=== PATIENT | female | born 1945 | race Caucasian/White ===

== ENCOUNTER 2018-06-07 09:06 | Inpatient (IN) | payer OTHER ==
[2018-06-07] MEDS ORDERED: IOPAMIDOL (ISOVUE-300) 100 ML BTL ONE (09:14)
--- NOTE | 2018-06-07 09:23 | EDPHY ---
H & P Time Seen by Provider: 06/07/18 09:11 HPI/ROS: CHIEF COMPLAINT: Fall HISTORY OF PRESENT ILLNESS: The patient is a 72-year-old female with a history of dementia presents emergency department from [facility] at [facility]. The patient was found down on the floor. Unclear exactly how long she was on the floor. The staff reports that she fell today and had no other previous falls. The patient complains of head and neck pain. She denies any chest pain or shortness of breath. No abdominal pain. The patient does not recall the fall. REVIEW OF SYSTEMS: Patient has difficulty giving a complete review of systems due to her trauma and dementia Past Medical/Surgical History: Includes dementia, rhabdomyolysis, osteoporosis, depression, anxiety, breast cancer Smoking Status: Never smoked Physical Exam: Vitals noted GENERAL: No acute distress, alert. HEAD: No evidence of trauma. Patient has an abrasion on on the top of her head and abrasion on the right side of her head that appear to be acute. The patient's right face has a healing abrasion. This is not appear to be acute. EYES: PERRLA, EOMI, normal to inspection. ENT: Patient is coarse upper airway breath sounds. (she denies shortness of breath) Airway appears intact, no dental or oral injury, no malocclusion, no hemotympanum, normal external examination. NECK: The trachea is midline. There is no crepitus. Patient has C-spine tenderness to palpation. No deformity RESPIRATORY: [Clear to auscultation bilaterally, no rales, rhonchi or wheezing. Chest wall: Abrasion to the right chest wall.. No crepitance or deformity. CVS: Regular rate and rhythm, no rubs, murmurs, or gallops. ABDOMEN: Soft, nontender, nondistended, no bruising or abrasions. Pelvis: Stable. No tenderness palpation. GENITAL/RECTAL: Normal external exam. BACK: Patient has abrasion on the right side of her chest, no spinal tenderness , no spinal step off, no notable bruising or abrasions. SKIN: Normal color, warm, dry. No pallor or diaphoresis. EXTREMITIES: Right upper extremity: Abrasion and discoloration on her right shoulder. No tenderness palpation. Neurovascular intact distally. Left upper extremity: Atraumatic. No visible signs of trauma. No tenderness palpation. Neurovascular intact distally. Right lower extremity: Atraumatic. No visible signs of trauma. No tenderness palpation. Neurovascular intact distally. Left lower extremity: Atraumatic. No visible signs of trauma. No tenderness palpation. Neurovascular intact distally. NEURO/PSYCH: Alert and oriented x 2, GCS 14, normal mood and affect, normal motor sensory exam. Constitutional: Initial Vital Signs Temperature (C) 36.6 C 06/07/18 09:46 Heart Rate 105 H 06/07/18 09:46 Respiratory Rate 31 H 06/07/18 09:46 Blood Pressure 127/76 H 06/07/18 09:46 O2 Sat (%) 95 06/07/18 09:46 O2 Delivery Mode Nasal Cannula O2 (L/minute) 2 Allergies/Adverse Reactions: No Known Allergies Allergy (Verified 06/07/18 09:49) Home Medications: Medication Instructions Recorded NK [No Known Home Meds] 06/07/18 Medical Decision Making - Diagnostics Imaging Results: Imaging Impressions Cervical Spine CT 06/07/18 09:12 Impression: 1. Stable mild age-related atrophy. 2. No hemorrhage, mass effect, or definite acute peripheral infarct. 3. Stable mild to moderate nonspecific hypodensities in the white matter of bilateral cerebral hemispheres. Differential diagnosis includes microvascular ischemic disease, post-infectious/post-inflammatory sequela, atypical demyelinating disease, or migraine-related sequela. Small white matter lacunar infarcts may also have this appearance. 4. No evidence of acute fracture associated with the cervical spine 5. Stable moderate to marked degenerative disk disease involving the cervical spine with associated spinal and neuroforaminal stenoses at C3-C4, C4-C5, and C5 -C6. If symptoms worsen, additional imaging may be necessary. Findings discussed with Citlali Camarena M.D. at 0 945 hour, 06/07/2018. Head CT 06/07/18 09:12 Impression: 1. Stable mild age-related atrophy. 2. No hemorrhage, mass effect, or definite acute peripheral infarct. 3. Stable mild to moderate nonspecific hypodensities in the white matter of bilateral cerebral hemispheres. Differential diagnosis includes microvascular ischemic disease, post-infectious/post-inflammatory sequela, atypical demyelinating disease, or migraine-related sequela. Small white matter lacunar infarcts may also have this appearance. 4. No evidence of acute fracture associated with the cervical spine 5. Stable moderate to marked degenerative disk disease involving the cervical spine with associated spinal and neuroforaminal stenoses at C3-C4, C4-C5, and C5 -C6. If symptoms worsen, additional imaging may be necessary. Findings discussed with Citlali Camarena M.D. at 0 945 hour, 06/07/2018. Chest CT 06/07/18 09:14 Impression: 1. No acute fracture, however, sensitivity is diminished by respiratory motion artifact. 2. No acute sternal or thoracic spine fracture. 3. No pneumothorax or pulmonary contusion. 4. No evidence of acute aortic injury. 5. Trace right effusion and right basilar atelectasis. 6. Suspect gastroesophageal reflux and esophagitis evidenced by gastric wall thickening and layering fluid in the esophagus. Findings discussed with Emergency Department physician, Citlali Camarena, on 2018 at 10:10 a.m. ED Course/Re-evaluation: In the emergency department I met EMS on arrival. I took report from the textile dyer. Patient came as a limited trauma activation +. Patient was noted to have significant abrasions on her head and right side of her face. These seemed various ages. She also had discoloration to her right shoulder and right chest. She has a history of rhabdomyolysis in the past. I was concerned with the patient's presentation of traum, her dementia and her previous history. Laboratory studies were ordered. Patient was taken to CT imaging. She will start with imaging of her head and neck. If creatinine is normal she will have imaging of her chest abdomen and pelvis. This was ordered due to her fall, dimension and unclear history. I-STAT was performed. Sodium was low at 112. creatinine was 0.7. 959: Head CT: Please refer the dictated report by Dr. Bee. No acute disease noted. EKG shows sinus tachycardia, normal axis, normal intervals. There are no ST or T-wave abnormalities. CT chest, abdomen and pelvis: Please refer the dictated report by Dr. Mendes. No acute disease noted. CT cervical spine: Please refer the dictated report by Dr. Bee. No acute disease. No notable airway impingement. I discussed the results with the patient. I answered all her questions. Her C- collar was removed. The patient appeared anxious. She was given Ativan 0.25 mg IV. I discussed case with the hospitalist service. They will admit the patient for hyponatremia and further evaluation. I consulted Dr. Loco in from Trauma Services as a tree patient was limited trauma +. CK is pending. Lab was notified. Differential Diagnosis: My differential includes but is not limited to electrolyte abnormality, sugar abnormality, closed-head injury, subarachnoid hemorrhage, subdural hematoma, epidural hematoma, spinal injury, tracheal injury, angioedema Critical Care Time: The patient required 35 min of critical care time this was exclusive of any unbundled procedure. This was due the patient's altered mental status, need for frequent rechecks, low sodium, consultation with the hospitalist service and trauma. - Data Points Laboratory Results: Laboratory Results 06/07/18 09:30 06/07/18 06/07/18 06/07/18 10:03 09:30 09:30 WBC RBC Hgb POC Hgb Hct POC Hct MCV MCH MCHC RDW Plt Count MPV Neut % (Auto) Lymph % (Auto) [place] % (Auto) Eos % (Auto) Baso % (Auto) Nucleat RBC Rel Count Absolute Neuts (auto) Absolute Lymphs (auto) Absolute Monos (auto) Absolute Eos (auto) Absolute Basos (auto) Absolute Nucleated RBC Immature Gran % Immature Gran # PT INR APTT POC Sodium Sodium 112 mEq/L L* mEq/L (135-145) POC Potassium Potassium 3.7 mEq/L mEq/L (3.5-5.2) POC Chloride Chloride 65 mEq/L L mEq/L (97-110) Carbon Dioxide 20 mEq/l L mEq/l (22-31) POC Total CO2 Anion Gap 27 mEq/L H mEq/L (6-14) POC BUN BUN 12 mg/dL mg/dL (7-23) Creatinine 0.8 mg/dL mg/dL (0.6-1.0) POC Creatinine Estimated GFR > 60 Glucose 88 mg/dL mg/dL (70-100) POC Glucose Calcium 9.0 mg/dL mg/dL (8.5-10.4) Creatine Kinase Pending POC Troponin I 0.00 ng/mL ng/mL (0.00-0.08) 06/07/18 06/07/18 06/07/18 09:30 09:30 09:20 WBC Pending RBC Pending Hgb Pending POC Hgb 16.3 gm/dL gm/dL (12.6-16.3) Hct Pending POC Hct 48 % H % (38-47) MCV Pending MCH Pending MCHC Pending RDW Pending Plt Count Pending MPV Pending Neut % (Auto) Pending Lymph % (Auto) Pending [place] % (Auto) Pending Eos % (Auto) Pending Baso % (Auto) Pending Nucleat RBC Rel Count Pending Absolute Neuts (auto) Pending Absolute Lymphs (auto) Pending Absolute Monos (auto) Pending Absolute Eos (auto) Pending Absolute Basos (auto) Pending Absolute Nucleated RBC Pending Immature Gran % Pending Immature Gran # Pending PT 13.2 SEC SEC (12.0-15.0) INR 1.04 (0.83-1.16) APTT 29.8 SEC SEC (23.0-38.0) POC Sodium 112 mEq/L L* mEq/L (135-145) Sodium POC Potassium 3.3 mEq/L mEq/L (3.3-5.0) Potassium POC Chloride 69 mEq/L L mEq/L (97-110) Chloride Carbon Dioxide POC Total CO2 22 mEq/L mEq/L (22-31) Anion Gap POC BUN 11 mg/dL mg/dL (7-23) BUN Creatinine POC Creatinine 0.7 mg/dL mg/dL (0.6-1.0) Estimated GFR Glucose POC Glucose 104 mg/dL H mg/dL (70-100) Calcium Creatine Kinase POC Troponin I Medications Given: Discontinued Medications Lorazepam (Ativan Injection) 0.25 mg IVP EDNOW ONE Stop: 06/07/18 10:13 Last Admin: 06/07/18 10:16 Dose: 0.25 mg Lorazepam (Ativan Injection) 0.25 mg IVP ONCE ONE Stop: 06/07/18 10:39 Last Admin: 06/07/18 10:41 Dose: 0.25 mg Point of Care Test Results: Chemistry 06/07/18 06/07/18 10:03 09:20 POC Sodium 112 mEq/L L* mEq/L (135-145) POC Potassium 3.3 mEq/L mEq/L (3.3-5.0) POC Chloride 69 mEq/L L mEq/L (97-110) POC Total CO2 22 mEq/L mEq/L (22-31) POC BUN 11 mg/dL mg/dL (7-23) POC Creatinine 0.7 mg/dL mg/dL (0.6-1.0) POC Glucose 104 mg/dL H mg/dL (70-100) POC Troponin I 0.00 ng/mL ng/mL (0.00-0.08) ISTAT H&H 06/07/18 09:20 POC Hgb 16.3 gm/dL gm/dL (12.6-16.3) POC Hct 48 % H % (38-47) Departure - Departure Disposition: [facility] Inpatient Acute Clinical Impression: Hyponatremia Fall Qualifiers: Encounter type: initial encounter Qualified Code(s): W19.XXXA - Unspecified fall, initial encounter Facial abrasion Qualifiers: Encounter type: initial encounter Qualified Code(s): S00.81XA - Abrasion of other part of head, initial encounter Condition: Fair
[2018-06-07] MEDS ORDERED: LORazepam 2 MG/ML INJ IVP ONE ×2 (10:12→10:38)
[2018-06-07 10:20] LABS: INR 1.04 (0.83-1.16); PROTIME(PATIENT) 13.2 SEC (12.0-15.0)
[2018-06-07] MEDS ORDERED: LORazepam 2 MG/ML INJ ONE (10:37)
[2018-06-07] MEDS ORDERED: ACETAMINOPHEN 325 MG TAB PO PRN (10:49)
[2018-06-07] MEDS ORDERED: ONDANSETRON DISINTEGRATING 4 MG TAB PO PRN (10:49)
[2018-06-07] MEDS ORDERED: ONDANSETRON 4 MG/2 ML VIAL IVP PRN (10:49)
[2018-06-07 11:57] LABS: PLATELET COUNT 222 10^3/uL (150-400)
--- NOTE | 2018-06-07 12:27 | PDCONSULT ---
Display Carver Note: Renal Consult Note CC: Found down HPI: The patient is a 72 y/o F with no PMH who presents after being found down at her assisted living facility. She reports being in her usual state of health until having a fall this am. She cannot recall how it happened but woke up on the floor. Per her son she went shopping yesterday and does not usually have any issues. She is able to recall all events up until the fall. She reports drinking 8 bottles of water daily. She admits to having a cough that started a few weeks ago, but no N/V/D, fevers, or other issues. She cannot recall having problems with her sodium in the past nor has she had heart issues. She is not taking any medications. Tried calling the son, Branden, and left VM. PMH: None PSH: None Social Hx: Non-smoker, no ETOH use, independent living ROS: Negative except as per HPI. Objective: Temp Pulse Resp BP Pulse Ox 36.5 C 92 30 H 85/71 L 97 06/07/18 11:49 06/07/18 11:49 06/07/18 11:49 06/07/18 11:49 06/07/18 11:49 O2 (L/minute) 2 Physical Exam: Gen: Mild distress, raspy voice, trauma to eye and forehead HEENT: eechymosis, MMM Neck: Supple CV: RRR, no murmurs RESP: Coarse bs, no wheezing ABD: Soft, NT, ND EXT: Non-pitting edema, pulses intact Neuro: Non-focal, A+Ox3 Labs: WBC 15.03 10^3/uL (3.80-9.50) H 06/07/18 11:06 RBC 4.26 10^6/uL (4.18-5.33) 06/07/18 11:06 Hgb 13.7 g/dL (12.6-16.3) 06/07/18 11:06 POC Hgb 16.3 gm/dL (12.6-16.3) 06/07/18 09:20 Hct 36.8 % (38.0-47.0) L 06/07/18 11:06 POC Hct 48 % (38-47) H 06/07/18 09:20 MCV 86.4 fL (81.5-99.8) 06/07/18 11:06 MCH 32.2 pg (27.9-34.1) 06/07/18 11:06 MCHC 37.2 g/dL (32.4-36.7) H 06/07/18 11:06 RDW 11.9 % (11.5-15.2) 06/07/18 11:06 Plt Count 222 10^3/uL (150-400) 06/07/18 11:06 MPV 9.9 fL (8.7-11.7) 06/07/18 11:06 Neut % (Auto) Not Reported 06/07/18 11:06 Lymph % (Auto) Not Reported 06/07/18 11:06 [place] % (Auto) Not Reported 06/07/18 11:06 Eos % (Auto) Not Reported 06/07/18 11:06 Baso % (Auto) Not Reported 06/07/18 11:06 Nucleat RBC Rel Count Not Reported 06/07/18 11:06 Absolute Neuts (auto) Not Reported 06/07/18 11:06 Absolute Lymphs (auto) Not Reported 06/07/18 11:06 Absolute Monos (auto) Not Reported 06/07/18 11:06 Absolute Eos (auto) Not Reported 06/07/18 11:06 Absolute Basos (auto) Not Reported 06/07/18 11:06 Absolute Nucleated RBC Not Reported 06/07/18 11:06 Immature Gran % Not Reported 06/07/18 11:06 Seg Neutrophils % 81.6 % 06/07/18 11:06 Band Neutrophils % 13.3 % 06/07/18 11:06 Lymphocytes % 4.1 % 06/07/18 11:06 Monocytes % 1.0 % 06/07/18 11:06 Eosinophils % 0.0 % 06/07/18 11:06 Basophils % 0.0 % 06/07/18 11:06 Metamyelocytes % 0.0 % 06/07/18 11:06 Myelocytes % 0.0 % 06/07/18 11:06 Promyelocytes % 0.0 % 06/07/18 11:06 Blast Cells % 0.0 % 06/07/18 11:06 Immature Gran # Not Reported 06/07/18 11:06 Absolute Seg Neuts 12.26 10^3/uL (1.70-6.50) H 06/07/18 11:06 Absolute Band Neuts 2.00 10^3/uL (0.00-0.70) H 06/07/18 11:06 Absolute Lymphocytes 0.62 10^3/uL (1.00-3.00) L 06/07/18 11:06 Absolute Monocytes 0.15 10^3/uL (0.30-0.80) L 06/07/18 11:06 Absolute Eosinophils 0.00 10^3/uL (0.03-0.40) L 06/07/18 11:06 Absolute Basophils 0.00 10^3/uL (0.02-0.10) L 06/07/18 11:06 Absolute Metamyelocyte 0.00 10^3/mL (0.00-0.00) 06/07/18 11:06 Absolute Myelocytes 0.00 10^3/mL (0.00-0.00) 06/07/18 11:06 Absolute Promyelocytes 0.00 10^3/uL (0.00-0.00) 06/07/18 11:06 Absolute Plasma Cells 0.00 10^3/uL (0.00-0.00) 06/07/18 11:06 Nucleated RBCs 0 /100 WBC (0-0) 06/07/18 11:06 Absolute Blast Cells 0.00 10^3/uL (0.00-0.00) 06/07/18 11:06 Plasma Cells % 0.0 % 06/07/18 11:06 Platelet Estimate ADEQUATE (ADEQ) 06/07/18 11:06 Echinocytes 3+ H 06/07/18 11:06 PT 13.2 SEC (12.0-15.0) 06/07/18 09:30 INR 1.04 (0.83-1.16) 06/07/18 09:30 APTT 29.8 SEC (23.0-38.0) 06/07/18 09:30 POC Sodium 112 mEq/L (135-145) L* 06/07/18 09:20 Sodium 110 mEq/L (135-145) L* 06/07/18 11:06 POC Potassium 3.3 mEq/L (3.3-5.0) 06/07/18 09:20 Potassium 3.7 mEq/L (3.5-5.2) 06/07/18 11:06 POC Chloride 69 mEq/L (97-110) L 06/07/18 09:20 Chloride 67 mEq/L (97-110) L 06/07/18 11:06 Carbon Dioxide 22 mEq/l (22-31) 06/07/18 11:06 POC Total CO2 22 mEq/L (22-31) 06/07/18 09:20 Anion Gap 21 mEq/L (6-14) H 06/07/18 11:06 POC BUN 11 mg/dL (7-23) 06/07/18 09:20 BUN 12 mg/dL (7-23) 06/07/18 11:06 Creatinine 0.7 mg/dL (0.6-1.0) 06/07/18 11:06 POC Creatinine 0.7 mg/dL (0.6-1.0) 06/07/18 09:20 Estimated GFR > 60 06/07/18 11:06 Glucose 91 mg/dL (70-100) 06/07/18 11:06 POC Glucose 104 mg/dL (70-100) H 06/07/18 09:20 Calcium 8.5 mg/dL (8.5-10.4) 06/07/18 11:06 POC Troponin I 0.00 ng/mL (0.00-0.08) 06/07/18 10:03 Urine Color LT. YELLOW 06/07/18 10:51 Urine Appearance CLEAR 06/07/18 10:51 Urine pH 6.0 (5.0-7.5) 06/07/18 10:51 Ur Specific [place] >= 1.030 (1.002-1.030) 06/07/18 10:51 Urine Protein NEGATIVE (NEGATIVE) 06/07/18 10:51 Urine Ketones 3+ (NEGATIVE) H 06/07/18 10:51 Urine Blood NEGATIVE (NEGATIVE) 06/07/18 10:51 Urine Nitrate NEGATIVE (NEGATIVE) 06/07/18 10:51 Urine Bilirubin NEGATIVE (NEGATIVE) 06/07/18 10:51 Urine Urobilinogen 0.2 EU (0.2-1.0) 06/07/18 10:51 Ur Leukocyte Esterase NEGATIVE (NEGATIVE) 06/07/18 10:51 Urine RBC NONE SEEN /hpf (0-3) 06/07/18 10:51 Urine WBC 0-1 /hpf (0-3) 06/07/18 10:51 Ur Epithelial Cells TRACE /lpf (NONE-1+) 06/07/18 10:51 Urine Bacteria 1+ /hpf (NONE SEEN) H 06/07/18 10:51 Hyaline Casts 0-1 /lpf (0-1) 06/07/18 10:51 Granular Casts 1-3 /lpf (0-1) H 06/07/18 10:51 Urine Mucus 1+ /lpf (NONE-1+) 06/07/18 10:51 Urine Glucose NEGATIVE (NEGATIVE) 06/07/18 10:51 Imaging: Head CT results reviewed. A/P: The patient is a 72 y/o F with no PMH who presents after a fall with severe hyponatremia. Unknown etiology and may be hypovolemic given hypotension and leukocytosis. However may also be SIADH of unknown etiology given clinical exam and history. -check Na q3h -sent urine studies STAT -hold fluids and keep NPO for now -cultures, viral panel -echo, TSH -monitor accurate UO -no indication for 3% saline at this time -goal Na for today 116-118mg/dL Consult appreciated, will continue to follow, please contact if ?'s. #[phone] Buddy Gerard, DO [facility]
--- NOTE | 2018-06-07 12:59 | GHP ---
[f rep st] HISTORY AND PHYSICAL DATE OF ADMISSION: 06/07/2018 CHIEF COMPLAINT: Fall, hyponatremia. HPI: A 72-year-old female with history of depression/anxiety, breast cancer, brought in by EMS after found down at [facility]. She lives independently and was feeling fine last night, ate dinner, and then awoke this morning, got dressed, and went down to visit. Then she awoke on the floor not recalling any events. Denied any prodromal chest pain, shortness of breath, dizziness, or lightheadedness. No recent fevers, chills, or sweats. Has had a dry cough for 2 weeks. No other respiratory symptoms. No chest pain. I spoke with her son, Branden, who states that she has been doing well. He buys her groceries and he reports she eats daily meals. She reports drinking 8 10oz bottles water daily. He took her shopping this week and doing well. Only taking a multivitamin and stool softener. Klonopin stopped 3 months ago. He buys her a 24-pack of bottled water a week;. In the ER, sodium was 112, repeat was 110. She is hypotensive with systolic 85. REVIEW OF SYSTEMS: I completed a 10-point review of systems, negative except as noted in HPI. PAST MEDICAL HISTORY: Rhabdomyolysis, osteoporosis, depression/anxiety, breast cancer, status post chemotherapy, XRT, history of prior seizure, hyponatremia. "cognitive issues" after chemo PAST SURGICAL HISTORY: Left breast lumpectomy. FAMILY HISTORY: No strokes or cancers. HOME MEDICATIONS: Colace, multivitamin. ALLERGIES: None. PHYSICAL EXAMINATION: VITAL SIGNS: Temperature 36.5, blood pressures was 127/ 76, now 85/71, heart rate 92, respirations 24, 97% on 2 L. GENERAL: She is lying in bed, no acute distress. HEENT: Dried blood at the nares and lips. Skin maceration, right yazidism and cheek. CV: Regular rate and rhythm. LUNGS: Clear. ABDOMEN: Soft. No tenderness. MUSCULOSKELETAL: 5/5 upper and lower extremity strength. NEURO: 2 through 12 intact. PSYCH: Alert and oriented x3. She is answering questions appropriately. LABS: Initial sodium 112, repeat is 110, potassium 3.7, chloride 67, carbon dioxide 22, BUN 21, creatinine 0.7, glucose 91. Coags within normal. WBC 15, hemoglobin 13, hematocrit 36, platelets 222. Urine: +3 ketones, +1 bacteria. EKG, personally reviewed: Sinus tachycardia. Thoracic spine CT: No acute fracture. Lumbar: No acute lumbar fracture. Cervical spine CT: Stable, moderate degenerative disk disease of cervical spine , C3 through C6. No hemorrhage or mass effect. Abdominal CT: No soft tissue injury, possible reflux, age indeterminate buckle fracture of the left superior pubic ramus. ASSESSMENT/PLAN: 1. Severe hyponatremia: 112 on admission, repeat 110. Denies nausea, vomiting , diarrhea. Not on diuretic. Urine studies are pending. I have consulted Renal who will evaluate. 2. Fall: Unclear if had a seizure due to low sodium. Nonischemic EKG, negative troponin. Imaging shows subacute left suprapubic ramus fracture. C- collar was cleared. Dr. Loco will evaluate. 3. History of breast cancer, status post chemotherapy, XRT. 4. Hypotension: negative trop. Not significantly dry on exam, but low Cl. Lactate, orthostatics. Denies GI symptoms 5. Leukocytosis: dry cough; resp PCR pending. No PNA on CT. 6. Metabolic encephalopathy: more somnolent this afternoon 7. Diet: N.p.o. for now. 8. Deep venous thrombosis prophylaxis, Lovenox. DISPOSITION: Inpatient admission for severe hyponatremia. Critical care time spent 75 min evaluating pt, reviewing labs and d/w Dr. Belle and Dr. Gerard /[id number]/MODL MTDD
[2018-06-07 13:32] LABS: CREATINE KINASE 2097 IU/L (0-156)
--- NOTE | 2018-06-07 14:15 | PDMN ---
Medical Necessity Medical necessity: Pt meets inpt criteria per MD order and MG-SIC, Systemic or Infectious Condition GRG, severe hyponatremia w/sodium of 110, unknown etiology. Pt was found down at her [facility] after fall. Pt also presents w/ hypotension and leukocytosis and imaging shows subacute L suprapubic ramus fx. Renal consult, sodium checks q3h, urine studies pending, bl cultures pending, NPO, ICU care. Anticipate>2MN for ongoing eval/management of severe hyponatremia.
[2018-06-07] MEDS: NS 1,000 ML IV SCH ×2 (14:40→15:53)
[2018-06-07] MEDS ORDERED: ALBUMIN 25% 100 ML SOLN IV ONE (14:55)
--- NOTE | 2018-06-07 15:03 | CPEKG ---
Test Reason : OPEN Blood Pressure : / mmHG Vent. Rate : 103 BPM Atrial Rate : 103 BPM P-R Int : 127 ms QRS Dur : 081 ms QT Int : 361 ms P-R-T Axes : 072 037 037 degrees QTc Int : 473 ms Sinus tachycardia Confirmed by Rainer Camarena ([id number]) on 06/07/2018 3:03:06 PM Referred By: RAINER CAMARENA Confirmed By:Rainer Camarena
--- NOTE | 2018-06-07 15:10 | ECHO ---
[email or web address] [address] [address] Main: [phone] Echocardiography Examination Transthoracic Name: OTILIO BURGOS MR#: [id number] Study Date: 06/07/2018 Study Time: 01:39 PM Date of : 1945 Age: 72 year(s) Height: 160 cm (63 in.) Weight: 61.69 kg (136 lb.) BSA: 1.64 m2 Gender: Female Examination: Echo Contrast: Image Quality: Adequate Rhythm: Heart Rate: BP: 96 mmHg/57 mmHg Indication: eval for VHD, WMA Procedure Staff Referring Physician: Correctional Maintenance Technician: Sharlene Lucas [facility] Reading Physician: Shekhar Bennett MD Requesting Provider: Indication: eval for VHD, WMA Measurements Chambers AV/MV Label Value Normal Value Label Value Normal Value LVOTd 1.7 cm (1.8cm - 2cm) AV PGmean 4 mmHg LVDd, 2D 3.5 cm (3.9cm - 5.3cm) JOSÉ MIGUEL (VTI) 1.8 cm2 LVDs, 2D 2.1 cm (2.1cm - 4cm) MV E Vmax 0.47 m/s IVSd, 2D 0.9 cm (0.6cm - 1.1cm) MV A Vmax 0.7 m/s LVPWd, 2D 0.9 cm MV E/A 0.67 LVEF, 2D 71 % (54% - 74%) MV E/E' lateral 5.8 LVOT PGmean 2 mmHg MV E/E' septal 10.3 (0.45 - 1.25) LVOT Vmean 0.74 m/s MV DT 246 ms EF lower range (%) 55 % MV E' septal 0.05 m/s EF upper range (%) 60 % MV PHT 0.09 s RVDd, 2D 2.3 cm (1.9cm - 3.8cm) MVA PHT 2.5 cm2 LADs, 2D 2.4 cm (2.7cm - 3.8cm) MV E' lateral 0.08 m/s Additional Vessels MV E/E' mean 7.23 Label Value Normal Value MV PHT 88 ms AoAsc 2.6 cm MV E' mean 0.06 m/s AoRoot, 2D 2.9 cm (1.4cm - 2.6cm) IVC 1.2 cm (1.2cm - 2.3cm) Conclusions Patient: OTILIO BURGOS Study Date: 06/07/2018 Page 1 of 2 01:39 PM (1) Left ventricular systolic ejection fraction was normal (55-60%) - normal wall motion (2) Normal RV size and function (3) Normal atrial dimensions (4) Trivial MR with mild MAC (5) Poor visualization of the aortic valve morphology (patient was unable to position for the surface echo) with moderate AI. (6) Grossly normal tricupsid and pulmonic valves (7) Normal aorta dimensions (8) Consider HEATHER to better assess the pathology to the aortic valve, as well as cusp morphology Findings Limited imaging, patient unable to lay on left side. Left Ventricle: Left ventricle is normal in size. EF range is estimated at 55 % - 60 %. Left ventricle wall thickness is normal. There are no regional wall motion abnormalities. Cannot determine LAP and Diastolic Dysfunction Grade. Right Ventricle: Normal size right ventricle. Right ventricular systolic function is normal. Mitral Valve: Mitral valve appears structurally normal. Trivial mitral regurgitation. There is mild mitral annular calcification. Aortic Valve: Moderate aortic regurgitation is present. Aortic valve and leaflets not well visualized, suggest HEATHER to eval aortic insufficiency. Aorta: The aortic root size in 2D measures 2.9 cm. The ascending aorta measures 2.6 cm. Aorta Measurements AoRoot, 2D is 2.9 cm. IVC: The inferior vena cava is normal in size. Exam Details Procedure Ordered: Echo Procedure Status: Routine study Image Quality: Adequate Facility Location: Cardiac Echo 1 (No Signature Object) Patient: OTILIO BURGOS Study Date: 06/07/2018 Page 2 of 2 01:39 PM [id number]
[2018-06-07] MEDS ORDERED: NS 250 ML IV ONE (15:21)
--- NOTE | 2018-06-07 15:31 | HOSPPROG ---
Hospitalist Progress Note Assessment/Plan: Update this afternoon: SBP 70s. RN spoke with son again who now reports vomit was all over apartment, so dehydration likely contributing #Hypotension -Echo shows NL EF 55%, mod AR. UA with bacteria, no WBCs/nitrites. Neg resp PCR -dosed total 500cc NS and albumin with improved BP. Making urine -spoke with Dr. Gerard; NS 100cc/hr with q1hr istat Na--> Dr Chase on-call and aware of plan -PICC line ordered -AM cortisol #Hyponatremia -monitor q1h istat Na -may need DDAVPP if corrects too quickly #Anemia: repeat H/H this evening #Goals: does not have Advanced Directive, spiritual care consulted to assist -daughter at bedside and questions answered. BrotherBranden, is MDPOA Objective: Vital Signs Temp Pulse Resp BP Pulse Ox 36.5 C 86 15 94/47 L 96 06/07/18 11:49 06/07/18 15:00 06/07/18 15:00 06/07/18 15:00 06/07/18 15:00 Laboratory Results 06/07/18 11:06 06/07/18 13:25 PT 13.2 SEC (12.0-15.0) 06/07/18 09:30 INR 1.04 (0.83-1.16) 06/07/18 09:30 ICD10 Worksheet Patient Problems: Problems Problem Status Onset Facial abrasion Acute Fall Acute Hyponatremia Acute Encephalopathy Acute Seizure Acute
[2018-06-07] MEDS ORDERED: ALBUMIN 25% 100 ML IV ONE (15:54)
--- NOTE | 2018-06-07 16:05 | ASMTCMCOM ---
CM Note CM Note Notes: Pt presented to the ED via EMS as a LTA + after being found down in her Independent Living apartment at [facility]. Pt was found with a large abrasion to the right side of her face. Pt also had other abrasions that appeared healed, possibly from other previous falls. Pt is admitted for a fall(s?) possibly related to a possible seizure due to severe hyponatremia. Pt has a history of having a seizure due to severe hyponatremia. Pt is also presenting w/hypotension and leukocytosis. This CM called and spoke w/pt's son and POA, Branden ([phone]) who lives and works locally ([facility]/[place]). Updated Branden on pt's status and Branden states he will call his sister Rachelle ([phone]) who lives in [place]. Branden states he plans on coming to the hospital this afternoon. 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 Branden states pt has not taken any Rxn medications for at least the past 3 months. See H&P and progress note for additional info provided by Branden. Branden states he is leaving on for [place] for vacation; so after then Rachelle will be available for emergencies and/or medical decision making. *Additional POA paperwork, alternate POA/proxy paperwork may need to be completed w/Rachelle and Branden prior to him leaving on . Pt receives non-skilled private caregiving assistance twice a day from [facility] ([phone]). Pt's PCP is listed as Dr Mancuso on facesheet but is listed as Dr. Kimberli Mcintyre in the [facility] records. This CM called and spoke w/Teresita; relayed that the pt was being admitted. Pt to receive PICC line. ECHO completed. PT/OT/CLERK OF COURT and wound care consults/evals ordered. Exact DC needs TBD. CM to follow. Date Signed: 06/07/2018 04:05 PM Electronically Signed By:Sheridan Lozoya RN
--- NOTE | 2018-06-07 16:07 | ASMTLACE ---
LIN Acuity / Level of Answers: Yes Care: Did the patient have an inpatient admission? Comorbidities - select Answers: Any tumor (including all that apply lymphoma or leukemia) History of falls Other Notes: anxiety, depression, OA , b reast cancer (underwent chemo 10 yrs ago that resulted in "chemo brain") vs dementia diagnosis; history of seizure and hyponatremi a # of Emergency department Answers: 1-2 visits in the last 6 months Social determinants Answers: Mental health diagnosis (anxiety, depression, pers onality disorders, etc.) Score: 13 Date Signed: 06/07/2018 04:06 PM Electronically Signed By:Sheridan Lozoya RN
[2018-06-07] MEDS ORDERED: NS 1,000 ML IV SCH ×2 (17:00→18:15)
[2018-06-07] MEDS ORDERED: D50W 25 GM/50 ML SYR IVP PRN (17:31)
[2018-06-07] MEDS ORDERED: POTASSIUM CL 20 MEQ TAB PO ONE (19:30)
--- NOTE | 2018-06-07 19:45 | GCON ---
[f rep st] CONSULTATION DATE OF CONSULTATION: 06/07/2018 CHIEF COMPLAINT: Fall. HISTORY OF PRESENT ILLNESS: The patient is a 72-year-old woman who was found down at [facility]. She lives independently and her son assists her with buying groceries. She says that she felt w ell last night. She was going to have breakfast this morning. She was found down. She does not hav e any recollection of the events. PAST MEDICAL HISTORY: Includes breast cancer, history of prior seizure, hyponatremia, osteoporosis, depression, anxiety, and currently being treated for severe hyponatremia, rhabdomyolysis. PAST SURGICAL HISTORY: Left breast lumpectomy. FAMILY HISTORY: Noncontributory to fall. ALLERGIES: No known drug allergies. PHYSICAL EXAMINATION: VITAL SIGNS: Afebrile, 86, 36.5, 92, 85/71, 97% on room air. GENERAL: Pleas ant, lying on gurney. A bit tachypneic. She appears well nourished. HEENT: Ecchymosis over right side of face. Her pupils are equal, round, reactive to light and accommodation. No hemotympanum. N o otorrhea. No rhinorrhea. Teeth fit together normally, no chips. Posterior pharynx clear. Mucous membranes dry. LUNGS: Clear to auscultation bilaterally. She is tachypneic but with direction berenice l slow her breathing rate down. CARDIAC: Regular rate. ABDOMEN: Bowel sounds present. Soft, nont joaquin. MUSCULOSKELETAL: 5/5 strength upper and lower extremities. SKIN: No ecchymosis noted on to rso or extremities. NECK: No cervical spine tenderness. Full range of motion. PSYCH: Answers que stions appropriately. NEURO: Grossly intact. LABORATORY DATA: I personally reviewed the results of her CT scan of her head, C-spine, chest, abdom en, pelvis with her spinal reconstruction. She has a subacute buckle fracture of the left superior p ubic ramus. Otherwise, no acute traumatic injuries. Reviewed her laboratory work. Her hemoglobin a nd hematocrit are 13.7 and 36.8. INR 1.04. Chemistry panel is notable for a sodium of 110, creatini ne 0.7. Sodium 112. Her CK is 2097 and CK-MB 25.5. Troponin is negative. Her drug screen is negat gus and her alcohol is less than 10. IMPRESSION AND PLAN: The patient is a 72-year-old woman who was found down. She does have rhabdomyo lysis. She does not have acute traumatic injury. She is severely hyponatremic. She will be admitte d to the hospitalist. I do not see any other injuries. Please contact the trauma service with any q uestions or concerns. We are happy to see the patient in followup should it be desired. /[id number]/MODL
[2018-06-07] MEDS ORDERED: POTASSIUM Cl (KCl) 100 ML IV ONE (20:30)
[2018-06-07] MEDS: 1/2 NS 1,000 ML IV SCH (23:18)
[2018-06-08] MEDS: 1/2 NS 1,000 ML IV SCH ×2 (07:47→17:19)
[2018-06-08 08:04] LABS: CREATINE KINASE 808 IU/L (0-156)
--- NOTE | 2018-06-08 08:13 | SOAPPROG ---
SOAP Progress Note Assessment/Plan: Assessment: hyponatremia, admit Na 112, most recent about 20 hours later 118, appropriate rise fall at home, unwitnessed volume depletion on admit, better hypotension, SBP remains in 80's mild rhabdomyolysis probable vol depletion initially, Henry 12 Plan: continue current therapies check cxr today (rhonchi) consider echocardiogram with hypotension 06/08/18 08:09 Subjective: tired, slept OK no sig pain some cough and mild SOB not eating much at this point can't remember anything about the incident Objective: Vital Signs Temp Pulse Resp BP Pulse Ox 37.2 C 69 17 83/43 L 100 06/08/18 04:00 06/08/18 07:00 06/08/18 07:00 06/08/18 06:00 06/08/18 07:00 Microbiology 06/07/18 13:30 Respiratory Panel (PCR) - Final Nasal, Sinus - Swab No Organism Detected By Pcr Laboratory Results 06/08/18 05:30 06/08/18 05:30 06/07/18 06/08/18 06/09/18 05:59 05:59 05:59 Intake Total 1848 Output Total 1550 Balance 298 PT 13.2 SEC (12.0-15.0) 06/07/18 09:30 INR 1.04 (0.83-1.16) 06/07/18 09:30 Physical Exam - Physical Exam General Appearance: alert, thin Neck: normal inspection Respiratory: rales, rhonchi, wheezing Cardiac/Chest: regular rate, rhythm, systolic murmur, No edema, No friction rub Abdomen: normal bowel sounds, non-tender, soft Skin: warm/dry Extremities: No swelling Neuro/Psych: alert, normal mood/affect, oriented x 3 ICD10 Worksheet Patient Problems: Problems Problem Status Onset Facial abrasion Acute Fall Acute Hyponatremia Acute Encephalopathy Acute Seizure Acute
[2018-06-08] MEDS: ENOXAPARIN 40 MG/0.4 ML SYR SC SCH (09:02)
--- NOTE | 2018-06-08 10:20 | HOSPPROG ---
Hospitalist Progress Note Assessment/Plan: #Hypotension: volume loss with vomiting -no infectious source identified -Echo shows NL EF 55%, mod AR. NL cortisol -NICOM indicates fluid-responsive; albumin dosed #Hyponatremia: due vomiting/excess water intake. Na with appropriate rise, now 117. 1/2 NS, q3hr Na #Anemia: H/H stable. Iron studies #h/o breast cancer: s/p XRT/chemo #Depression/anxiety: previously on Klonopin #Deconditioning: PT/OT #Goals: does not have Advanced Directive, spiritual care consulted to assist Inpatient admission for hyponatremia. hypotension Subjective: c/o sore throat. No dizziness/lightheadedness Objective: Vital Signs Temp Pulse Resp BP Pulse Ox 37.0 C 73 15 80/36 L 99 06/08/18 08:00 06/08/18 09:00 06/08/18 09:00 06/08/18 09:00 06/08/18 09:00 Microbiology 06/07/18 13:30 Respiratory Panel (PCR) - Final Nasal, Sinus - Swab No Organism Detected By Pcr Laboratory Results 06/08/18 05:30 06/08/18 08:41 06/07/18 06/08/18 06/09/18 05:59 05:59 05:59 Intake Total 1848 Output Total 1550 Balance 298 PT 13.2 SEC (12.0-15.0) 06/07/18 09:30 INR 1.04 (0.83-1.16) 06/07/18 09:30 - Time Spent With Patient Time Spent with Patient: greater than 35 minutes Time Spent with Patient: Greater than 35 minutes spent on this patients care, greater than 50% of time spent counseling, educating, and coordinating care regarding the above mentioned plan. - Physical Exam Constitutional: no apparent distress Eyes: PERRL Cardiovascular: regular rate and rhythym Respiratory: rhonchi Gastrointestinal: normoactive bowel sounds, soft, non-tender abdomen Genitourinary: andres in urethra Skin: warm, other (pressure injury right synagogue, cheek) Neurologic: AAOx3, CN II-XII Intact Psychiatric: interacting appropriately Lymph, Heme, Immunologic: other (left cervical ) ICD10 Worksheet Patient Problems: Problems Problem Status Onset Facial abrasion Acute Fall Acute Hyponatremia Acute Encephalopathy Acute Seizure Acute
--- NOTE | 2018-06-08 11:37 | PDINTPN ---
Special Officer Progress Note Assessment/Plan: Assessment: Hyponatremia: Likely due to vomiting with high free water oral intake. Improved with hydration (1/2 NS) and close monitoring of sodium. The current rate of rise in serum sodium is appropriate. Hypertension: Likely due to volume depletion, with low urine sodium at admission and responsiveness to small fluid boluses yesterday. Likely caused by vomiting. Anemia: Mild. Has not fallen since initial hydration last night. No signs of active bleeding. Back and neck pain: No evidence of fracture or other significant injury on CT. Likely musculoskeletal injury. Plan: Continue current fluids strategy with close monitoring of serum sodium to ensure appropriate rate of rise in the serum sodium. Check a NICOM monitor to assess for fluid responsiveness, consider fluid bolus if she continues to be fluid responsive. Follow CBC Tylenol p.r.n. Pain. Can add an oral narcotic if her pain is not controlled. Speech therapy evaluation for swallow. 06/08/18 11:39 06/08/18 11:39 Subjective: Feels a bit stronger. Complains of neck and back pain, and throat soreness. Objective: Vital Signs Temp Pulse Resp BP Pulse Ox 37.0 C 77 22 H 99/58 L 95 06/08/18 08:00 06/08/18 11:00 06/08/18 11:00 06/08/18 11:00 06/08/18 11:00 Microbiology 06/07/18 13:30 Respiratory Panel (PCR) - Final Nasal, Sinus - Swab No Organism Detected By Pcr Laboratory Results 06/08/18 05:30 06/08/18 08:41 06/07/18 06/08/18 06/09/18 05:59 05:59 05:59 Intake Total 1848 Output Total 1550 Balance 298 PT 13.2 SEC (12.0-15.0) 06/07/18 09:30 INR 1.04 (0.83-1.16) 06/07/18 09:30 Physical Exam - Physical Exam General Appearance: alert, no apparent distress EENT: other (Persistent abrasions/pressure injury on the right side of the face. ) Neck: normal inspection Respiratory: lungs clear, normal breath sounds Cardiac/Chest: regular rate, rhythm, edema (1+) Abdomen: normal bowel sounds, non-tender, soft Skin: normal color, warm/dry Extremities: normal inspection Neuro/Psych: alert, normal mood/affect, oriented x 3 ICD10 Worksheet Patient Problems: Problems Problem Status Onset Facial abrasion Acute Fall Acute Hyponatremia Acute Encephalopathy Acute Seizure Acute
--- NOTE | 2018-06-08 12:07 | GCON ---
[f rep st] CONSULTATION PULMONARY/CRITICAL CARE CONSULTATION DATE OF CONSULTATION: 06/07/2018 REFERRING PHYSICIAN: Sharlene Hung MD REASON FOR REFERRAL: Evaluation and management of hyponatremia and hypotension. HISTORY: Ms. Martinez is a 72-year-old woman with a history of depression and anxiety, who was brought i n by EMS after being found down at [facility]. She apparently had some vomiting on the day prior to admission, then awoke yesterday on the floor, not recalling any events. She denies shortness of karel ath, chest pain, fevers or chills. She has had a mild dry cough for a few weeks. Upon presentation to the emergency department, she was found to be hyponatremic with initial sodium of 112, down to 110 at recheck. She subsequently developed hypotension on being brought to the floor, with blood pressu re in the 80s, which was responsive to IV fluids. She was more somnolent when her blood pressure was lower, but is more alert now with some hydration. She reports a sore throat and also a sore lower b ack. PAST MEDICAL HISTORY: 1. Depression/anxiety. 2. Breast cancer, status post chemotherapy and radiation therapy. 3. History of prior seizures. 4. Hyponatremia. MEDICATIONS: Include Colace on admission. ALLERGIES: None. SOCIAL HISTORY: The patient lives independently at [facility]. She apparently drinks quite a bit o f water at home, several bottles daily. FAMILY HISTORY: Unremarkable. REVIEW OF SYSTEMS: Reliable review of systems is unobtainable due to the patient's fluctuating menta l status. PHYSICAL EXAMINATION: VITAL SIGNS: Blood pressure is 88/44 with a heart rate of 81. She is afebril e. Oxygen saturations are 99% on room air. HEENT: She has some abrasions/pressure injury of her ri ght face. NECK: No adenopathy. Trachea is midline. CHEST: Clear to auscultation. CARDIAC: Regu lar rate and rhythm without murmur. ABDOMEN: Soft, nontender. Bowel sounds are present. EXTREMITI ES: No clubbing, cyanosis, or edema. NEURO: Patient is somnolent, but intermittently arousable. S he has no gross motor or sensory deficits. LABORATORY: Hemoglobin is 11.6, down from 13.3 at admission. Sodium is 113 with a potassium of 4.3. Creatinine is normal at 0.9. Troponin is 0. Lactate is 1.4. CK is 2097. IMAGING: Echocardiogram shows an ejection fraction of 55% to 60% with a normal RV. The aortic valve is poorly visualized. A CT scan of the chest shows no acute intrapulmonary findings. There is some probable esophagitis. Images reviewed by me. A CT scan of the head and spine showed no acute concerning findings. ASSESSMENT: 1. Hyponatremia. This is likely due to some vomiting, as well as polydipsia. She is probably euvol emic or possibly hypovolemic, given the hypotension. She is not taking p.o. currently. 2. Hypotension. The patient has significant hypotension in the setting of her hyponatremia. She do es not seem to have an acute cardiac event, given her normal echocardiogram and troponins. Her lacta te is normal, arguing against sepsis, although this could be evolving. RECOMMENDATIONS: 1. Continue cautious fluid boluses with frequent sodium checks to make sure she does not develop wor sening hyponatremia. 2. Place a PICC line. Once the PICC line is in, we can check CVP and possibly NICOM monitor to see whether she is going to continue to be fluid responsive, although so far she has seemed to respond to cautious fluid boluses. If she is not fluid responsive, we will need to do further evaluation for c auses of hypotension. /[id number]/MODL
[2018-06-08] MEDS ORDERED: ALBUMIN 5% 250 ML IV ONE ×2 (13:08→16:26)
[2018-06-08] MEDS: CEPACOL LOZENGE PO PRN ×2 (14:42→19:28)
[2018-06-08] MEDS: GUAIFENESIN/DM 10 ML UDCUP PO PRN (14:42)
[2018-06-08] MEDS ORDERED: DESMOPRESSIN ACETATE 4 MCG/ML INJ IVP STA (18:34)
[2018-06-08] MEDS ORDERED: D5W 1,000 ML IV SCH (18:45)
[2018-06-09] MEDS ORDERED: POTASSIUM CL 20 MEQ PKT PO ONE ×2 (02:30→05:00)
[2018-06-09] MEDS ORDERED: D5W 1,000 ML IV ONE (02:30)
[2018-06-09] MEDS ORDERED: DESMOPRESSIN ACETATE 2 MCG in NS 50 ML IV ONE (02:30)
[2018-06-09] MEDS: ALTEPLASE 2 MG VIAL IVP PRN ×2 (08:31→09:19)
[2018-06-09] MEDS: ENOXAPARIN 40 MG/0.4 ML SYR SC SCH (08:31)
--- NOTE | 2018-06-09 13:43 | PDINTPN ---
Laboratory Animal Caretaker Progress Note Assessment/Plan: Assessment: Hyponatremia: Likely due to vomiting with high free water oral intake. Improved with hydration (1/2 NS) and close monitoring of sodium. DDAVP and D5 last night due to rapid correction last evening. Now off IVF. The current rate of rise in serum sodium is appropriate. Hypotension: Resolved. Likely due to volume depletion, with low urine sodium at admission and responsiveness to small fluid boluses over the last 2 days. Likely caused by vomiting. Anemia: Mild. Has not fallen since initial hydration last night. No signs of active bleeding. Back and neck pain: No evidence of fracture or other significant injury on CT. Likely musculoskeletal injury. Plan: Resume NS at a low rate per nephrology. Reduce frequency of Na checks. D/ C andres. Can transfer to floor. Tylenol p.r.n. Pain. Can add an oral narcotic if her pain is not controlled. 06/09/18 13:42 Subjective: Feels better. Had pain improved. Feeling a bit stronger, walked in unit today. Appetite improved, ate some soup for lunch. Objective: Vital Signs Temp Pulse Resp BP Pulse Ox 38.3 C 104 H 18 127/61 H 95 06/09/18 12:00 06/09/18 12:00 06/09/18 12:00 06/09/18 12:00 06/09/18 12:00 Laboratory Results 06/08/18 05:30 06/09/18 11:45 06/08/18 06/09/18 06/10/18 05:59 05:59 05:59 Intake Total 1848 2639 180 Output Total 1550 3050 Balance 298 -411 180 PT 13.2 SEC (12.0-15.0) 06/07/18 09:30 INR 1.04 (0.83-1.16) 06/07/18 09:30 Physical Exam - Physical Exam General Appearance: alert, no apparent distress EENT: normal ENT inspection Neck: normal inspection Respiratory: lungs clear, normal breath sounds Cardiac/Chest: regular rate, rhythm, No edema Abdomen: normal bowel sounds, non-tender Skin: normal color, warm/dry Extremities: normal inspection Neuro/Psych: alert, normal mood/affect, oriented x 3 ICD10 Worksheet Patient Problems: Problems Problem Status Onset Facial abrasion Acute Fall Acute Hyponatremia Acute Encephalopathy Acute Seizure Acute
--- NOTE | 2018-06-09 13:46 | SOAPPROG ---
SOAP Progress Note Assessment/Plan: Assessment: hyponatremia, admit Na 112, continues to have an appropriate rise fall at home, unwitnessed volume depletion on admit, better, received albumin yesterday with pentecostal of BP hypotension, SBP now in 120's mild rhabdomyolysis probable vol depletion initially, Henry 12 Plan: continue current therapies decrease blood draws to every 6 hours resume NS at 50cc/hr OK to move to floor 06/08/18 08:09 06/09/18 13:43 Subjective: feels better today walked in the halls eating better no cp sob nausea or vomiting energy improving Objective: Vital Signs Temp Pulse Resp BP Pulse Ox 38.3 C 104 H 18 127/61 H 95 06/09/18 12:00 06/09/18 12:00 06/09/18 12:00 06/09/18 12:00 06/09/18 12:00 Laboratory Results 06/08/18 05:30 06/09/18 11:45 06/08/18 06/09/18 06/10/18 05:59 05:59 05:59 Intake Total 1848 2639 180 Output Total 1550 3050 Balance 298 -411 180 PT 13.2 SEC (12.0-15.0) 06/07/18 09:30 INR 1.04 (0.83-1.16) 06/07/18 09:30 Physical Exam - Physical Exam General Appearance: alert Neck: normal inspection Respiratory: No rhonchi, No wheezing Cardiac/Chest: regular rate, rhythm, systolic murmur, No edema, No friction rub Abdomen: normal bowel sounds, non-tender, soft Skin: warm/dry Extremities: No swelling Neuro/Psych: alert, normal mood/affect, oriented x 3 ICD10 Worksheet Patient Problems: Problems Problem Status Onset Facial abrasion Acute Fall Acute Hyponatremia Acute Encephalopathy Acute Seizure Acute
--- NOTE | 2018-06-09 15:43 | ASMTCMCOM ---
CM Note CM Note Notes: Patient doing better, will transfer to the floor. I spoke w Francie at [facility] who says that patient has non-skilled caregiving services w [facility]. PT/VEST PRESSER recommending home care. I placed a referral w [facility]. Case Management will follow. Date Signed: 06/09/2018 03:42 PM Electronically Signed By:Aria Santamaria RN
--- NOTE | 2018-06-09 15:44 | HOSPPROG ---
Hospitalist Progress Note Assessment/Plan: #Fever: today. UA negative. Normal xray yesterday. Blood cultures pending. Negative resp PCR, strep #Hypotension: volume loss with vomiting. Now improved -no infectious source identified -Echo shows NL EF 55%, mod AR. NL cortisol -NICOM indicates fluid-responsive; albumin dosed #Hyponatremia: -due vomiting/excess water intake. Na 123, q6hr Na -Na 50cc/hr #Iron deficiency anemia: IV iron #Metabolic encephalopathy: due hyponatremia. Improving #h/o breast cancer: s/p XRT/chemo #Depression/anxiety: previously on Klonopin #Deconditioning: PT/OT #Goals: does not have Advanced Directive, spiritual care consulted to assist Inpatient admission for hyponatremia. hypotension, IVFs. Ok for floor Subjective: "feeling better" Objective: Vital Signs Temp Pulse Resp BP Pulse Ox 38.3 C 104 H 18 127/61 H 95 06/09/18 12:00 06/09/18 12:00 06/09/18 12:00 06/09/18 12:00 06/09/18 12:00 Laboratory Results 06/08/18 05:30 06/09/18 11:45 06/08/18 06/09/18 06/10/18 05:59 05:59 05:59 Intake Total 1848 2639 180 Output Total 1550 3050 Balance 298 -411 180 PT 13.2 SEC (12.0-15.0) 06/07/18 09:30 INR 1.04 (0.83-1.16) 06/07/18 09:30 - Time Spent With Patient Time Spent with Patient: greater than 35 minutes Time Spent with Patient: Greater than 35 minutes spent on this patients care, greater than 50% of time spent counseling, educating, and coordinating care regarding the above mentioned plan. - Physical Exam Constitutional: no apparent distress Ears, Nose, Mouth, Throat: other (right facial skin pressure ulcer) Cardiovascular: regular rate and rhythym Respiratory: no respiratory distress Gastrointestinal: normoactive bowel sounds Genitourinary: No andres in urethra Skin: warm Neurologic: CN II-XII Intact Psychiatric: encephalopathic (nearly-resolved) ICD10 Worksheet Patient Problems: Problems Problem Status Onset Facial abrasion Acute Fall Acute Hyponatremia Acute Encephalopathy Acute Seizure Acute
[2018-06-09] MEDS: SODIUM FERRIC GLUCONAT/SUCROSE 125 MG in NS 100 ML IV SCH (16:22)
[2018-06-09] MEDS: GUAIFENESIN/DM 10 ML UDCUP PO PRN (20:42)
[2018-06-10 05:53] LABS: PLATELET COUNT 190 10^3/uL (150-400)
--- NOTE | 2018-06-10 09:00 | SOAPPROG ---
SOAP Progress Note Assessment/Plan: Assessment: hyponatremia, admit Na 112, continues to have an appropriate rise, stable in mid 120's after DDAVP x 2 fall at home, unwitnessed volume depletion on admit, better, received albumin yesterday with hoahaoism of BP, BP on low side again today while she was asleep mild rhabdomyolysis probable vol depletion initially, Henry 12 hypokalemia Plan: continue current therapies decrease blood draws to every 6 hours continue NS at 50cc/hr KCl 20 BID 06/08/18 08:09 06/09/18 13:43 06/10/18 08:57 Subjective: resting tired today no cp sob nausea arousable, wants to go back to sleep Objective: Vital Signs Temp Pulse Resp BP Pulse Ox 36.8 C 78 17 86/54 L 97 06/10/18 03:37 06/10/18 08:00 06/10/18 08:00 06/10/18 03:37 06/10/18 08:00 Laboratory Results 06/10/18 05:45 06/10/18 05:45 06/09/18 06/10/18 06/11/18 05:59 05:59 05:59 Intake Total 2639 1355 Output Total 3050 1190 Balance -411 165 PT 13.2 SEC (12.0-15.0) 06/07/18 09:30 INR 1.04 (0.83-1.16) 06/07/18 09:30 Physical Exam - Physical Exam General Appearance: other (tired) Neck: normal inspection Respiratory: No rhonchi, No wheezing Cardiac/Chest: regular rate, rhythm, systolic murmur, No edema Abdomen: normal bowel sounds, non-tender, soft Extremities: No swelling Neuro/Psych: other (arousable) ICD10 Worksheet Patient Problems: Problems Problem Status Onset Facial abrasion Acute Fall Acute Hyponatremia Acute Encephalopathy Acute Seizure Acute
--- NOTE | 2018-06-10 09:42 | ASMTCMCOM ---
CM Note CM Note Notes: Pt is [place] pt, unable to be linked with [facility], CM submit referral for [facility] for PT/[facility]. Plan: [facility] with [facility] and [facility]. Date Signed: 06/10/2018 09:41 AM Electronically Signed By:JOSUE Philippe
--- NOTE | 2018-06-10 10:38 | WOCRNPDOC ---
WOCRN Advanced Assessment Note - Skin Integrity Problem, Advanced Assess Right Face Dressing Type: Open to Air Closure Description: Not Approximated Exudate Amount: None Lulu Wound Tissue: Erythema, Painful/Tender Lulu Wound Swelling: Mild Wound Bed Color: Brown, Fielding Wound Bed Constitution: Scab Wound Edges: Attached, Irregular Skin Integrity Problem Comment: This note is for visit dated 06/08. Met YOAV Millard at bedside. Patient alert and sitting up in bed with obvious abrasions to right face. We discussed options for covering patient's abrasions but she would prefer not to have any dressings on her face. I think this is appropriate at this time. We discussed that as the wounds heal, it may feel tight and itch. Some topical wound gel could be applied for temporary relief. Wound care will not continue to round.
[2018-06-10] MEDS ORDERED: POTASSIUM CL 20 MEQ TAB PO ONE (10:45)
[2018-06-10] MEDS: POTASSIUM CL 20 MEQ TAB PO ONE ×2 (11:08→12:07)
[2018-06-10] MEDS: GUAIFENESIN/DM 10 ML UDCUP PO PRN (11:09)
[2018-06-10] MEDS: SODIUM FERRIC GLUCONAT/SUCROSE 125 MG in NS 100 ML IV SCH (11:09)
--- NOTE | 2018-06-10 12:08 | HOSPPROG ---
Hospitalist Progress Note Assessment/Plan: #Fever: today. UA negative. Normal xray yesterday. Blood cultures pending. Negative resp PCR, strep #Hypotension: volume loss with vomiting. Now improved -no infectious source identified -Echo shows NL EF 55%, mod AR. NL cortisol -NICOM indicates fluid-responsive; albumin dosed #Hyponatremia: -due vomiting/excess water intake. -Na 50cc/hr #Hypokalemia: daily supplementation #Iron deficiency anemia: IV iron (Day 2/3) #Metabolic encephalopathy: due hyponatremia. resolved #h/o breast cancer: s/p XRT/chemo #Depression/anxiety: previously on Klonopin #Deconditioning: PT/OT. Likely home with home care #Goals: does not have Advanced Directive, spiritual care consulted to assist Inpatient admission for hyponatremia. hypotension, IVFs. Ok for floor Subjective: no acute events Objective: Vital Signs Temp Pulse Resp BP Pulse Ox 37.0 C 114 H 17 86/54 L 97 06/10/18 11:17 06/10/18 11:17 06/10/18 08:00 06/10/18 03:37 06/10/18 08:00 Laboratory Results 06/10/18 05:45 06/10/18 05:45 06/09/18 06/10/18 06/11/18 05:59 05:59 05:59 Intake Total 2639 1355 Output Total 3050 1190 Balance -411 165 PT 13.2 SEC (12.0-15.0) 06/07/18 09:30 INR 1.04 (0.83-1.16) 06/07/18 09:30 - Physical Exam Constitutional: no apparent distress Eyes: PERRL Ears, Nose, Mouth, Throat: other (pressure ulcer right cheek improviing) Cardiovascular: regular rate and rhythym Respiratory: no respiratory distress, No inspiratory crackles Gastrointestinal: normoactive bowel sounds Genitourinary: no bladder fullness Skin: warm Neurologic: AAOx3, CN II-XII Intact Psychiatric: interacting appropriately ICD10 Worksheet Patient Problems: Problems Problem Status Onset Facial abrasion Acute Fall Acute Hyponatremia Acute Encephalopathy Acute Seizure Acute
[2018-06-10] MEDS: ENOXAPARIN 40 MG/0.4 ML SYR SC SCH (15:31)
[2018-06-10] MEDS: BACITRACIN OINTMENT 1 PACKET TP SCH ×2 (15:58→20:10)
[2018-06-11] MEDS: BACITRACIN OINTMENT 1 PACKET TP SCH ×2 (08:40→21:40)
[2018-06-11] MEDS: ENOXAPARIN 40 MG/0.4 ML SYR SC SCH (08:40)
[2018-06-11] MEDS ORDERED: SODIUM FERRIC GLUCONAT/SUCROSE 125 MG in NS 100 ML IV SCH (09:00)
[2018-06-11] MEDS: POTASSIUM CL 20 MEQ/15 ML UDCUP PO SCH ×2 (10:55→21:37)
--- NOTE | 2018-06-11 11:09 | SOAPPROG ---
SOAP Progress Note Assessment/Plan: Assessment: 1. Hyponatremia - -Admit Na 112, continues to have an appropriate rise, OK to reduce checks to Q12hr -Probable vol depletion initially, Henry 12, had some hypotension now improved -Cont NS at 50cc/hr -OK for PO intake ad starr 2. Hypokalemia - -Was on K-dur but fell off, add KCL 20meq PO BID x 2 days then monitor for further needs Plan: 06/11/18 11:06 06/11/18 11:07 Subjective: Feels well, reports she has a good appetite. No c/o. Objective: Vital Signs Temp Pulse Resp BP Pulse Ox 36.9 C 90 16 106/60 97 06/11/18 07:35 06/11/18 07:35 06/11/18 07:35 06/11/18 07:35 06/11/18 07:35 Laboratory Results 06/10/18 05:45 06/11/18 05:45 06/10/18 06/11/18 06/12/18 05:59 05:59 05:59 Intake Total 1355 1967 Output Total 1190 1999 300 Balance 165 -33 -300 PT 13.2 SEC (12.0-15.0) 06/07/18 09:30 INR 1.04 (0.83-1.16) 06/07/18 09:30 Physical Exam - Physical Exam General Appearance: WD/WN, alert, no apparent distress Neck: supple Respiratory: normal breath sounds Cardiac/Chest: regular rate, rhythm Abdomen: non-tender, soft Extremities: No swelling ICD10 Worksheet Patient Problems: Problems Problem Status Onset Facial abrasion Acute Fall Acute Hyponatremia Acute Encephalopathy Acute Seizure Acute
[2018-06-11] MEDS: ALTEPLASE 2 MG VIAL IVP PRN (16:16)
--- NOTE | 2018-06-11 18:35 | HOSPPROG ---
Hospitalist Progress Note Assessment/Plan: The patient is a 72-year-old female with PMH breast cancer, depression/anxiety who was admitted for severe hyponatremia and nausea/vomiting and hypotension. ASSESSMENT/PLAN: Hyponatremia, persistent Hypokalemia Dry cough Fever, likely 2/2 to atelectasis Iron deficiency anemia Generalized weakness/deconditioning Depression/anxiety Hypotension, resolved Nausea/vomiting, resolved Metabolic encephalopathy, resolved at basline Suspected MCI, chronic H/o breast cancer, s/p chemo/XRT -IV NS - 50cc/hr. Nephrology recs appreciated. -Monitor Na/K. -BID potassium replacement. -IV iron - day 05/08. -PT/OT/ISU (pt refusing ISU). -CXR x 2 have been unremarkable. Cough likely 2/2 benign etiology like postnasal drip. -prn O2, SVNs (pt refuses SVNs). VTE prophylaxis: Lovenox Code Status: Full code Status: inpt for > 2 midnight stay. Disposition: Med surg ____ SUBJECTIVE: Today the patient was complaining of left leg pain earlier, but it has resolved. Per RN, patient has a dry cough. OBJECTIVE: Physical Exam: General: The patient is a female who is alert and in no acute distress. HEENT: normocephalic, extraocular movements intact, conjunctivae clear. Mucous membranes moist. Neck: trachea midline, no visible masses. CV: +S1/S2, RRR, no MRG. Resp: unlabored, CTAB no RRW. Abd: soft and nondistended. Musculoskeletal: Normal muscle tone/bulk. Neuro: cranial nerves II - XII grossly intact. Intact gross motor and sensory function. Psych: Appropriate mood and flat affect. Skin: Mild pallor. No petechiae. Heme/lymph: No peripheral edema at bilateral lower extremities. Labs/Imaging/Other Tests: Personally reviewed/interpreted. Blood Cx - negative prelim x 4. Resp panel - negative. CXR - personally interpreted - no acute CP abnormality. Objective: Vital Signs Temp Pulse Resp BP Pulse Ox 37.7 C 96 16 114/65 96 06/11/18 15:28 06/11/18 15:28 06/11/18 15:28 06/11/18 15:28 06/11/18 15:28 Laboratory Results 06/10/18 05:45 06/11/18 17:50 06/10/18 06/11/18 06/12/18 05:59 05:59 05:59 Intake Total 1355 1967 500 Output Total 1190 1999 1849 Balance PT 13.2 SEC (12.0-15.0) 06/07/18 09:30 INR 1.04 (0.83-1.16) 06/07/18 09:30 - Time Spent With Patient Time Spent with Patient: greater than 35 minutes Time Spent with Patient: Greater than 35 minutes spent on this patients care, greater than 50% of time spent counseling, educating, and coordinating care regarding the above mentioned plan. ICD10 Worksheet Patient Problems: Problems Problem Status Onset Facial abrasion Acute Fall Acute Hyponatremia Acute Encephalopathy Acute Seizure Acute
[2018-06-11] MEDS ORDERED: BENZONATATE 100 MG CAP PO PRN (18:41)
[2018-06-12] MEDS: NS 1,000 ML IV SCH ×2 (00:22→20:07)
[2018-06-12] MEDS ORDERED: BISACODYL 10 MG SUPP PR PRN (04:54)
[2018-06-12] MEDS ORDERED: LACTULOSE 20 GM/30 ML UDCUP PO PRN (04:54)
[2018-06-12] MEDS ORDERED: MAGNESIUM HYDROXIDE 30 ML UDCUP PO PRN (04:54)
[2018-06-12] MEDS ORDERED: POLYETHYLENE GLYCOL 3350 17 GM PKT PO PRN (04:54)
[2018-06-12] MEDS: BACITRACIN OINTMENT 1 PACKET TP SCH ×2 (08:38→21:14)
[2018-06-12] MEDS: ENOXAPARIN 40 MG/0.4 ML SYR SC SCH (08:38)
[2018-06-12] MEDS: POTASSIUM CL 20 MEQ/15 ML UDCUP PO SCH ×2 (08:43→21:02)
[2018-06-12] MEDS: SENNOSIDES/DOCUSATE SODIUM TAB PO SCH ×2 (09:49→21:14)
--- NOTE | 2018-06-12 15:26 | HOSPPROG ---
Hospitalist Progress Note Assessment/Plan: The patient is a 72-year-old female with PMH breast cancer, depression/anxiety who was admitted for severe hyponatremia and nausea/vomiting and hypotension. ASSESSMENT/PLAN: Hyponatremia, persistent Hypokalemia, resolved Dry cough Fever, likely 2/2 to atelectasis -resolved Iron deficiency anemia, s/p IV iron x 3 doses Generalized weakness/deconditioning Depression/anxiety Hypotension, resolved Nausea/vomiting, resolved Metabolic encephalopathy, resolved, @ baseline Suspected MCI, chronic (per daughter, since chemo) H/o breast cancer, s/p chemo/XRT -IV NS - 50cc/hr. Nephrology recs appreciated. -Monitor Na/K. -BID potassium replacement. -PT/OT/ISU (pt refusing ISU). -CXR x 2 have been unremarkable. Cough likely 2/2 benign etiology like postnasal drip. -prn O2, SVNs (pt refuses SVNs). -Pt refused PT today. -requ[facility] records from [facility]. -discussed w/ patient's daughter to confirm pt is at baseline mentally. Daughter feels comfortable w/ pt going home to . Pt has caregiver support there also. VTE prophylaxis: Lovenox Code Status: Full code Status: inpt. Disposition: Med surg. Anticipate DC to [facility] tomorrow, w/ [facility] (pending PT/OT updated recs). ____ SUBJECTIVE: Today the patient was complaining of left leg pain earlier, but it has resolved. Per RN, patient has a dry cough. OBJECTIVE: Physical Exam: General: The patient is a female who is alert and in no acute distress. HEENT: normocephalic, extraocular movements intact, conjunctivae clear. Mucous membranes moist. Neck: trachea midline, no visible masses. CV: +S1/S2, RRR, no MRG. Resp: unlabored, CTAB no RRW. Abd: soft and nondistended. Musculoskeletal: Normal muscle tone/bulk. Neuro: cranial nerves II - XII grossly intact. Intact gross motor and sensory function. Psych: Appropriate mood and flat affect. Skin: Mild pallor. No petechiae. Heme/lymph: No peripheral edema at bilateral lower extremities. Labs/Imaging/Other Tests: Personally reviewed/interpreted. Blood Cx - negative prelim x 4. Resp panel - negative. CXR - personally interpreted - no acute CP abnormality. Objective: Vital Signs Temp Pulse Resp BP Pulse Ox 36.6 C 105 H 16 113/55 L 95 06/12/18 07:44 06/12/18 07:44 06/12/18 07:44 06/12/18 07:44 06/12/18 07:44 Laboratory Results 06/10/18 05:45 06/12/18 05:05 06/11/18 06/12/18 06/13/18 05:59 05:59 05:59 Intake Total 1966 1450 120 Output Total 1999 2950 Balance -33 -1500 120 PT 13.2 SEC (12.0-15.0) 06/07/18 09:30 INR 1.04 (0.83-1.16) 06/07/18 09:30 - Time Spent With Patient Time Spent with Patient: greater than 35 minutes Time Spent with Patient: Greater than 35 minutes spent on this patients care, greater than 50% of time spent counseling, educating, and coordinating care regarding the above mentioned plan. ICD10 Worksheet Patient Problems: Problems Problem Status Onset Facial abrasion Acute Fall Acute Hyponatremia Acute Encephalopathy Acute Seizure Acute
--- NOTE | 2018-06-12 19:08 | SOAPPROG ---
SOAP Progress Note Assessment/Plan: Assessment: 1. Hyponatremia - -Admit Na 112, continues to have an appropriate rise, now checking Q12hr -Probable vol depletion initially, Henry 12, had some hypotension now improved -Cont NS at 50cc/hr -OK for PO intake ad starr 2. Hypokalemia - -Was on K-dur but fell off, add KCL 20meq PO BID x 2 days then monitor for further needs Plan: 06/12/18 19:07 Subjective: Feels ok. Reports eating fairly well. No other complaints. Objective: Vital Signs Temp Pulse Resp BP Pulse Ox 36.7 C 98 16 110/56 L 95 06/12/18 15:39 06/12/18 15:39 06/12/18 15:39 06/12/18 15:39 06/12/18 15:39 Laboratory Results 06/10/18 05:45 06/12/18 05:05 06/11/18 06/12/18 06/13/18 05:59 05:59 05:59 Intake Total 1966 1450 920 Output Total 1999 2950 Balance -33 -1500 920 PT 13.2 SEC (12.0-15.0) 06/07/18 09:30 INR 1.04 (0.83-1.16) 06/07/18 09:30 Physical Exam - Physical Exam General Appearance: WD/WN, alert, no apparent distress Respiratory: lungs clear, normal breath sounds Cardiac/Chest: regular rate, rhythm Abdomen: non-tender, soft Extremities: No swelling ICD10 Worksheet Patient Problems: Problems Problem Status Onset Facial abrasion Acute Fall Acute Hyponatremia Acute Encephalopathy Acute Seizure Acute
[2018-06-13 07:47] VITALS: BP 120/63
[2018-06-13] MEDS: ENOXAPARIN 40 MG/0.4 ML SYR SC SCH (08:35)
[2018-06-13] MEDS: POTASSIUM CL 20 MEQ/15 ML UDCUP PO SCH (08:35)
[2018-06-13] MEDS: BACITRACIN OINTMENT 1 PACKET TP SCH (08:36)
[2018-06-13] MEDS: SENNOSIDES/DOCUSATE SODIUM TAB PO SCH (08:36)
--- NOTE | 2018-06-13 12:05 | PDIAF ---
- Diagnosis Diagnosis: hyponatremia Code Status: Full Code - Medication Management Discharge Medications: electronically signed and located in the Home Medication List. - Orders Services needed: Home Care, Registered Nurse Home Care Face to Face: I certify that this patient was under my care and that I had the required [id number] encounter meeting the encounter requirements on the discharge day. My findings support the fact that the patient is homebound as defined in Home Care Face to Face Continued: CMS Chapter 7 Medicare Benefits Manual 30.1.1 , The condition of the patient is such that there exists a normal inability to leave home and consequently, leaving home would require a considerable and taxing effort. Diet Recommendation: no restrictions on diet, fluid restriction (use comment for amount) (1500 mls/ 24 hours) Diet Texture: Dysphagia 2 - Mechanically Altered - Chopped, Ground, Thin Liquids , Meds Whole in Puree Additional Instructions: Follow up with your PCP this week continue fluid restriction of 1500ml of water/ 24 hours - Labs/Radiology BMP Date: 06/15/18 (send to PCP do in am) - Follow Up Care Current Providers and Referrals: Patient,NotPresent [Primary Care Provider] - As per Instructions
--- NOTE | 2018-06-13 12:13 | PDIAF ---
- Diagnosis Diagnosis: hyponatremia Code Status: Full Code - Medication Management Discharge Medications: electronically signed and located in the Home Medication List. - Orders Services needed: Home Care, Registered Nurse Home Care Face to Face: I certify that this patient was under my care and that I had the required [id number] encounter meeting the encounter requirements on the discharge day. My findings support the fact that the patient is homebound as defined in Home Care Face to Face Continued: CMS Chapter 7 Medicare Benefits Manual 30.1.1 , The condition of the patient is such that there exists a normal inability to leave home and consequently, leaving home would require a considerable and taxing effort. Diet Recommendation: no restrictions on diet, fluid restriction (use comment for amount) (1500 mls/ 24 hours) Diet Texture: Dysphagia 2 - Mechanically Altered - Chopped, Ground, Thin Liquids , Meds Whole in Puree Additional Instructions: Follow up with your PCP this week Dr. Eli Dillard at [place] continue fluid restriction of 1500ml of water/ 24 hours I will have a nurse draw your sodium level on Wednesday and this will go to your primary care provider. - Labs/Radiology BMP Date: 06/15/18 (Eli Dillard at [place]) - Follow Up Care
--- NOTE | 2018-06-13 13:27 | GDS ---
[f rep st] DISCHARGE SUMMARY DIAGNOSES: 1. Hyponatremia, thought secondary to volume depletion from nausea, vomiting, and increased water in take. 2. Iron deficiency anemia, status post 3 doses of intravenous iron. 3. Nausea, vomiting, likely viral illness, resolving. 4. Generalized weakness and deconditioning. 5. Depression, anxiety. 6. Hypotension on admission, resolved with intravenous fluids. 7. History of breast cancer, status post chemo and radiation therapy. CONSULTATIONS: Nephrology and Pulmonology/[facility]. PROCEDURES DONE: 1. Thoracic, lumbar, and cervical spine CT; chest, abdomen, and head CT, all for trauma protocol. 2. Echocardiogram. Normal EF. 3. PICC line placement. HOSPITAL COURSE: The patient is a 72-year-old with a history of cancer and depression. She was in h er usual state of health and for unclear reasons, was found down at her independent living facility. On admission, she was found to be hyponatremic with a sodium of 112 to 110. She was admitted to the hospital intensive care unit for further evaluation and treatment. Nephrology was consulted and she was placed on a very slow IV fluid with a very rapid correction, so was given DDAVP to slow down the correction. From then on out, she was placed on a fluid restriction and had an appropriate correcti on up to a discharge sodium of 130. It was felt that her sodium levels were low because of poor p.o. intake from nausea, vomiting, likely viral illness, and increased water intake. It is unclear how s he ended up on the floor; however, her trauma workup with the above CT scans were all negative. On the day of discharge, she is feeling much better. She has been afebrile. Her sodium level is 130 . She has been eating and drinking, and ambulating well. DISCHARGE MEDICATIONS: Please see discharge medication form. She was resumed on all of her home med ications. FOLLOWUP: She should follow upwith her primary care provider, Dr. Eli Dillard, at [place] this week. Her son will be back in town tomorrow evening and he is the one who usually takes her to her appointments. I will get a visiting nurse to do a metabolic panel on Wednesday for sodium level to b e sent to her primary care doctor. Total time spent patient on day of discharge in coordination of care is 45 minutes. Copy requested to: Dr. Eli Dillard [place] /[id number]/MODL
--- NOTE | 2018-06-13 13:44 | ASMTCMCOM ---
CM Note CM Note Notes: PT is recommending home health care at this time. Awaiting further recommendations from [facility]/OT. Patient can return to [facility] with home health care services. Patient will need C RN to do lab draw. CM available should other needs arise. Plan : Dc to [facility] with [facility] Date Signed: 06/13/2018 12:15 PM Electronically Signed By:Anu Vincent RN
--- NOTE | 2018-06-13 15:12 | ASDISCHSUM ---
Discharge Information Plan Status:Home with Home Health Medically Cleared to Leave:06/13/2018 Discharge Date:06/13/2018 01:39 PM CM D/C Disposition:Home Health Service ADT D/C Disposition:Home Health Service Projected Discharge Date:06/13/2018 11:00 AM Transportation at D/C: Discharge Delay Reason: Follow-Up Date:06/13/2018 11:00 AM Discharge Slot: Final Diagnosis: Placement Information Referral Type:*Home Health Care Services Referral ID:[id number] Provider Name:[facility] Address 1[address] Address 2: City:[place] Selection Factors: State:[place] Patient Contact Information Contact Name:MALINI Relationship:Son Address: City:[facility] Alternate Phone: State/[facility] Code:[place] Email: Financial Information Financial Class:Medicare Advantage Plans Primary Plan Desc:[employer] ADV IP Primary Plan Number:[id number] Secondary Plan Desc: Secondary Plan Number: Assessment Information [facility] Progress Note CM Note CM Note Notes: Pt presented to the ED via EMS as a LTA + after being found down in her Independent Living apartment at [facility]. Pt was found with a large abrasion to the right side of her face. Pt also had other abrasions that appeared healed, possibly from other previous falls. Pt is admitted for a fall(s?) possibly related to a possible seizure due to severe hyponatremia. Pt has a history of having a seizure due to severe hyponatremia. Pt is also presenting w/hypotension and leukocytosis. This CM called and spoke w/pt's son and POA, Branden ([phone]) who lives and works locally ([facility]/[place]). Updated Branden on pt's status and Branden states he will call his sister Rachelle ([phone]) who lives in [place]. Branden states he plans on coming to the hospital this afternoon. 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 Branden states pt has not taken any Rxn medications for at least the past 3 months. See H&P and progress note for additional info provided by Branden. Branden states he is leaving on for [place] for vacation; so after then Rachelle will be available for emergencies and/or medical decision making. *Additional POA paperwork, alternate POA/proxy paperwork may need to be completed w/Rachelle and Branden prior to him leaving on . Pt receives non-skilled private caregiving assistance twice a day from [facility] ([phone]). Pt's PCP is listed as Dr Mancuso on facesheet but is listed as Dr. Kimberli Mcintyre in the [facility] records. This CM called and spoke w/Teresita; relayed that the pt was being admitted. Pt to receive PICC line. ECHO completed. PT/OT/CORONARY CARE UNIT NURSE and wound care consults/evals ordered. Exact DC needs TBD. CM to follow. Date Signed: 06/07/2018 04:05 PM Electronically Signed By:Sheridan Lozoya RN LACE LACE Acuity / Level of Answers: Yes Care: Did the patient have an inpatient admission? Comorbidities - select Answers: Any tumor (including all that apply lymphoma or leukemia) History of falls Other Notes: anxiety, depression, OA , b reast cancer (underwent chemo 10 yrs ago that resulted in "chemo brain") vs dementia diagnosis; history of seizure and hyponatremi a # of Emergency department Answers: 1-2 visits in the last 6 months Social determinants Answers: Mental health diagnosis (anxiety, depression, pers onality disorders, etc.) Score: 13 Date Signed: 06/07/2018 04:06 PM Electronically Signed By:Sheridan Lozoya RN [facility] CM Progress Note CM Note CM Note Notes: PT is recommending home health care at this time. Awaiting further recommendations from CORONARY CARE UNIT NURSE/OT. Patient can return to [facility] with home health care services. Patient will need [facility] RN to do lab draw. CM available should other needs arise. Plan : Dc to [facility] with [facility] Date Signed: 06/13/2018 12:15 PM Electronically Signed By:Anu Vincent RN [facility] CM Progress Note CM Note CM Note Notes: Patient doing better, will transfer to the floor. I spoke w Francie at [facility] who says that patient has non-skilled caregiving services w [facility]. PT/CORONARY CARE UNIT NURSE recommending home care. I placed a referral w [facility]. Case Management will follow. Date Signed: 06/09/2018 03:42 PM Electronically Signed By:Aria Santamaria RN [facility] CM Progress Note CM Note CM Note Notes: Pt is Kt nicholson, unable to be linked with [facility], CM submit referral for [facility] for PT/CORONARY CARE UNIT NURSE. Plan: [facility] [place] with [facility] and [facility] Non-skilled care. Date Signed: 06/10/2018 09:41 AM Electronically Signed By:JOSUE Philippe Intervention Information Intervention Type:Locating Emergency Contact Date of Service:06/07/2018 10:07 AM Patient Type:Inpatient Staff Member:YOAV Lozoya Sharon Hours:0.25 Discipline:Tire Layer Severity: Comment:Contacted pt's son and Branden SERRA Intervention Type:Post Acute Communication Date of Service:06/07/2018 11:07 AM Patient Type:Inpatient Staff Member:YOAV Lozoya [place] Hours:0.25 Discipline:Tire Layer Severity: Comment:Contacted [facility], updated them on pt's admission Intervention Type:*IM-Signed Date of Service:06/13/2018 10:25 AM Patient Type:Inpatient Staff Member:Carmen Pedersen Hours: Discipline: Severity: Comment:
--- NOTE | 2018-06-16 14:16 | PQFORM ---
PHYSICIAN QUERY FORM Needs Your Response This query form is being sent to you to assure this patient record is coded properly. 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 Ladd, Metabolic Encephalopathy was documented within the H&P and in the Hospitalist Progress notes dated 06/09-06/12. Patient presented to ER after fall and required critical care for altered mental status. Patient was noted to be more somnolent by Dr. Hung in the H&P. In Dr. Belle's 06/07 consult it is noted patient was somnolent when blood pressure was lower and had a fluctuating mental status. Based on the clinical indicators and your professional judgment should the diagnosis of 'Metabolic Encephalopathy' be included in the Discharge Summary? __x___Yes No Other more appropriate diagnosis (please specify) ____ Clinically unable to determine Thank you AFIA Hyatt HIM/Coding Dept. INSTRUCTIONS FOR RESPONSE: Answer question by clicking on the "Edit Document" button. Move cursor to area below the stars. When complete, hit "Save." Click on the "Sign" button, then click "Sign" again. Type in your PIN and hit "Enter." MTDD
== END 2018-06-13 13:39 | disposition home health service (06) | DRG 640 ==
LOC: EDUNIT# → F2N 11:41 → F1N 06-09 18:40
PROVIDERS: ADMIT Internal Medicine; ATTEND Internal Medicine
PROC: 02HV33Z Insertion of Infusion Device into Superior Vena Cava, Percutaneous Approach (ICD-10-PCS; principal; 2018-06-07)
DX: E87.1 Hypo-osmolality and hyponatremia (principal); G93.41 Metabolic encephalopathy; M62.82 Rhabdomyolysis; D50.9 Iron deficiency anemia, unspecified; F32.9 Major depressive disorder, single episode, unspecified; F41.9 Anxiety disorder, unspecified; Z85.3 Personal history of malignant neoplasm of breast; F03.90 Unspecified dementia, unspecified severity, without behavioral disturbance, psychotic disturbance, mood disturbance, and anxiety; M81.0 Age-related osteoporosis without current pathological fracture; W19.XXXA Unspecified fall, initial encounter; S00.81XA Abrasion of other part of head, initial encounter
CPT/HCPCS: 80307; 82435-PO; 82565-PO; 82947-PO; 84132-PO; 84295-PO; 84484-ER; 84520-PO; 85014-ER; 92507-GN; 92523-GN; 92526-GN; 92610-GN; 96374; 97112-GP; 97116-GP; 97161-GP; 97166-GO; 97530-GO; 97530-GP; 97535-GO; C1751; G0390; G0480; J1650; J2060; J2405; J2597; J2916; J2997; J3480; P9041; P9047; Q9967